=== PATIENT | male | born 1975 | race Caucasian/White ===

== ENCOUNTER 2016-11-03 14:24 | Emergency (ER) | payer BC ==
[2016-11-03 14:40] VITALS: BP 140/88
--- NOTE | 2016-11-03 15:13 | UC ---
Ear Complaint HPI - HPI Summary HPI Summary: 40 yo male with bilat otalgia and decreased hearing ears popping nasal congestion x days no fever - History of Current Complaint Chief Complaint: UCRespiratory Stated Complaint: EARS SINUS COMPLAINT Time Seen by Provider: 11/03/16 14:57 Hx Obtained From: Patient Onset/Duration: Gradual Onset, Lasting Hours Severity Initially: Mild Severity Currently: Mild Pain Intensity: 3 Pain Scale Used: 0-10 Numeric Aggravating Factors: Nothing Alleviating Factors: Nothing Associated Signs/Symptoms: Positive: Hearing Loss, URI Symptoms Related History: Seasonal Allergies - Allergies/Home Medications Allergies/Adverse Reactions: Allergies Allergy/AdvReac Type Severity Reaction Status Date / Time No Known Allergies Allergy Verified 11/03/16 14:40 Home Medications: Home Medications Omeprazole CAP* [Prilosec CAP* 20 MG] 1 tab PO DAILY 11/03/16 [History Confirmed 11/03/16] PMH/Surg Hx/FS Hx/Imm Hx Endocrine History: Diabetes, Dyslipidemia Cardiovascular History: Hypertension GI/ History: Gastroesophageal Reflux Other History Of: Negative For: HIV, Hepatitis B, Hepatitis C, Anticoagulant Therapy - Surgical History Surgical History: Yes Surgery Procedure, Year, and Place: hernia surgery as an infant - Family History Known Family History: Positive: Cardiac Disease, Hypertension, Diabetes - Social History Alcohol Use: Weekly Substance Use Type: None Smoking Status (MU): Never Smoked Tobacco Review of Systems Constitutional: Negative Skin: Negative Eyes: Negative ENT: Ear Ache, Nasal Discharge Respiratory: Negative Cardiovascular: Negative Gastrointestinal: Negative Genitourinary: Negative Motor: Negative Neurovascular: Negative Musculoskeletal: Negative Neurological: Negative Psychological: Negative All Other Systems Reviewed And Are Negative: Yes Physical Exam Triage Information Reviewed: Yes Appearance: Well-Appearing, No Pain Distress, Well-Nourished Vital Signs: Initial Vital Signs Temp 98.9 F 11/03/16 14:33 Pulse 86 11/03/16 14:33 Resp 16 11/03/16 14:33 BP 140/88 11/03/16 14:33 Pulse Ox 99 11/03/16 14:33 Eyes: Positive: Conjunctiva Clear ENT: Positive: Pharyngeal erythema, Nasal congestion, Nasal drainage, TM bulging , TM dull - Right, TM red - Left. Negative: Hearing grossly normal, Tonsillar swelling, Tonsillar exudate, Trismus, Muffled/hoarse voice Neck: Positive: Supple, Nontender Respiratory: Positive: Lungs clear, Normal breath sounds, No respiratory distress, No accessory muscle use Cardiovascular: Positive: RRR, No Murmur Musculoskeletal: Positive: ROM Intact, No Edema Neurological: Positive: Alert Psychological Exam: Normal Skin Exam: Normal Ear Complaint Course/Dx - Differential Dx/Diagnosis Provider Diagnoses: left otitis media. right serous otitis media Discharge - Discharge Plan Condition: Stable Disposition: HOME Prescriptions: Amoxicillin (*) [Amoxicillin 875 MG (*)] 875 mg PO BID #20 tab Fluticasone NASAL SPRAY 50MCG* [Flonase NASAL SPRAY 50MCG*] 2 spray BOTH NARES DAILY #1 btl Patient Education Materials: Otitis Media (ED), Serous Otitis Media (ED) Referrals: Basim Thornton MD [Primary Care Provider] - 2 Weeks (if not better) Additional Instructions: tylenol or ibuprofen if needed
== END 2016-11-03 15:14 | disposition home or self-care (01) ==
LOC: UCCORT 14:24
DX: H66.92 Otitis media, unspecified, left ear (principal); H65.91 Unspecified nonsuppurative otitis media, right ear
CPT/HCPCS: 99212; G0463

== ENCOUNTER 2017-09-14 16:41 | Emergency (ER) | payer BC ==
[2017-09-14 17:46] VITALS: BP 150/94
--- NOTE | 2017-09-14 18:19 | UC ---
Throat Pain/Nasal Aditya HPI - HPI Summary HPI Summary: Patient urgent care tonight with chief complaint 3 weeks of congestion postnasal and chest, complains of cough, patient's biggest concern is worsening right ear pain - History of Current Complaint Chief Complaint: UCRespiratory Stated Complaint: SINUS/EAR COMP Time Seen by Provider: 09/14/17 17:39 Hx Obtained From: Patient Onset/Duration: Gradual Onset, Lasting Weeks - 3, Still Present Severity: Moderate Pain Intensity: 8 Pain Scale Used: 0-10 Numeric Cough: None Associated Signs & Symptoms: Positive: Sinus Discomfort, Nasal Discharge - Allergies/Home Medications Allergies/Adverse Reactions: Allergies Allergy/AdvReac Type Severity Reaction Status Date / Time No Known Allergies Allergy Verified 09/14/17 17:37 Home Medications: Home Medications Ibuprofen TAB* [Advil TAB*] 400 mg PO Q6H PRN 09/14/17 [History Confirmed ] metFORMIN* [Glucophage 500 MG TAB *] 500 mg PO BID 09/14/17 [History Confirmed 09/14/17] PMH/Surg Hx/FS Hx/Imm Hx Previously Healthy: No Endocrine History: Diabetes, Dyslipidemia Cardiovascular History: Hypertension GI/ History: Gastroesophageal Reflux Other History Of: Negative For: HIV, Hepatitis B, Hepatitis C, Anticoagulant Therapy - Surgical History Surgical History: Yes Surgery Procedure, Year, and Place: hernia surgery as an infant - Family History Known Family History: Positive: Cardiac Disease, Hypertension, Diabetes - Social History Occupation: Employed Full-time Lives: With Family Alcohol Use: Occasionally Substance Use Type: None Smoking Status (MU): Never Smoked Tobacco - Immunization History Most Recent Influenza Vaccination: not this season Review of Systems Constitutional: Negative Skin: Negative Eyes: Negative ENT: Sore Throat, Ear Ache, Nasal Discharge, Sinus Congestion Respiratory: Cough Cardiovascular: Negative Gastrointestinal: Negative Genitourinary: Negative Motor: Negative Neurovascular: Negative Musculoskeletal: Negative Neurological: Negative Psychological: Negative Is Patient Immunocompromised?: No All Other Systems Reviewed And Are Negative: Yes Physical Exam Triage Information Reviewed: Yes Appearance: Well-Appearing, No Pain Distress, Well-Nourished Vital Signs: Initial Vital Signs Temp 98.1 F 09/14/17 17:39 Pulse 96 09/14/17 17:39 Resp 18 09/14/17 17:39 BP 150/94 09/14/17 17:39 Pulse Ox 100 09/14/17 17:39 Vital Signs Reviewed: Yes Eye Exam: Normal Eyes: Positive: Conjunctiva Clear ENT Exam: Normal ENT: Positive: Normal ENT inspection, Hearing grossly normal, Pharynx normal, Nasal congestion, Nasal drainage, TMs normal - left, TM bulging - right, TM red - right, Uvula midline. Negative: Trismus, Muffled voice, Hoarse voice, Dental tenderness, Sinus tenderness Dental Exam: Normal Neck exam: Normal Neck: Positive: Supple, Nontender Respiratory Exam: Normal Respiratory: Positive: Chest non-tender, Lungs clear, Normal breath sounds, No respiratory distress, No accessory muscle use Cardiovascular Exam: Normal Cardiovascular: Positive: RRR, No Murmur, Pulses Normal, Brisk Capillary Refill Musculoskeletal Exam: Normal Musculoskeletal: Positive: Strength Intact, ROM Intact, No Edema Neurological Exam: Normal Neurological: Positive: Alert, Muscle Tone Normal Psychological Exam: Normal Skin Exam: Normal Throat Pain/Nasal Course/Dx - Course Assessment/Plan: Amoxicillin and Flonase nasal spray increase fluids over-the- counter medications for symptom relief follow with PCP when necessary - Differential Dx/Diagnosis Provider Diagnoses: Right otitis media, nasal congestion Discharge - Sign-Out/Discharge Documenting (check all that apply): Discharge - Discharge Plan Condition: Stable Disposition: HOME Prescriptions: Amoxicillin PO (*) [Amoxicillin 875 MG (*)] 875 mg PO BID #20 tab Fluticasone NASAL SPRAY 50MCG* [Flonase NASAL SPRAY 50MCG*] 2 spray BOTH NARES DAILY #1 btl Patient Education Materials: Ear Infection (ED), Hypertension (ED), How to Use Nasal [place] (ED) Referrals: Basim Thornton MD [Primary Care Provider] - 2 Weeks - Billing Disposition and Condition Condition: STABLE Disposition: HOME
== END 2017-09-14 18:24 | disposition home or self-care (01) ==
LOC: UCCORT 16:41
DX: H66.91 Otitis media, unspecified, right ear (principal); R09.81 Nasal congestion; E11.9 Type 2 diabetes mellitus without complications; Z79.84 Long term (current) use of oral hypoglycemic drugs; I10 Essential (primary) hypertension
CPT/HCPCS: 99212; G0463

== ENCOUNTER 2019-03-26 09:24 | Emergency (ER) | payer BC ==
--- OUTSIDE RECORDS SUMMARY | 2019-03-26 11:20 | XMS REPORT | Continuity of Care Document ---
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 Problems Active Problems Provider Date Benign essential hypertension Chuck Khan MD Onset: 02/06/2019 Mixed hyperlipidemia Chuck Khan MD Onset: 02/06/2019 Social History Type Date Description Comments Sex Unknown Tobacco Use Start: Unknown Never Smoked Cigarettes Smoking Status Reviewed: 02/06/19 Never Smoked Cigarettes ETOH Use Occasionally consumes alcohol Tobacco Use Start: Unknown Patient denies history of smoking Allergies, Adverse Reactions, Alerts Description No Known Drug Allergies Medications Active Medications SIG Qnty Indications Ordering Date Provider Blood Pressure Kit check bp once a 1units I10 Chuck Khan MD 02/06/2019 Kit day and keep log generic acceptable Proair HFA 2 puffs every Unknown 108(90Base) morning and mcg/Act Aerosol evening Lisinopril 1 tab by mouth 30tabs Chuck Khan MD 20mg Tablets daily Omeprazole 1 tab daily as 30caps Chuck Khan MD 20mg needed Capsules Rosuvastatin Calcium 1 tab by mouth 30tabs Chuck Khan MD daily 20mg Tablets Metformin HCL take one tablet by 60tabs Chuck Khan MD 500mg mouth twice a day Tablets Immunizations Description No Information Available Vital Signs Date Vital Result Comment 02/06/2019 2:13pm BP Systolic 177 mmHg BP Diastolic 108 mmHg Body Temperature 98.6 F Heart Rate 103 /min Respiratory Rate 18 /min Height 69 inches 5'9" Weight 213.00 lb BMI (Body Mass Index) 31.5 kg/m2 BSA (Body Surface Area) 2.12 m2 [place] body weight in kilograms 73 kg O2 % BldC Oximetry 97 % Ra Results Description No Information Available Procedures Description No Information Available Medical Devices Description No Information Available Encounters Description No Information Available Assessments Date Code Description Provider 02/06/2019 Z79.899 Other buttermaker (current) drug therapy Chuck Khan MD 02/06/2019 Z00.01 Encounter for general adult medical examination Chuck Khan MD with abnormal findings 02/06/2019 I10 Essential (primary) hypertension Chuck Khan MD 02/06/2019 E78.5 Hyperlipidemia, unspecified Chuck Khan MD 02/06/2019 E11.65 Type 2 diabetes mellitus with hyperglycemia Chuck Khan MD 02/06/2019 K21.9 Gastro-esophageal reflux disease without Chuck Khan MD esophagitis 02/06/2019 J45.909 Unspecified asthma, uncomplicated Chuck Khan MD Plan of Treatment 02/06/2019 - Chuck Khan MDZ79.899 Other usp (current) drug therapyNew Labs:CBC W/Automated Diff, Ordered: 02/06/19Comprehensive Metabolic Panel, Ordered: 02/06/19Glycohemoglobin A1c, Ordered: 02/06/19LDL Cholesterol Profile, Ordered: 02/06/19TSH Reflex FT4 And/Or FT3, Ordered: 02/06/19Magnesium, Ordered : 02/06/19Magnesium, Ordered: 02/06/19Z00.01 Encounter for general adult medical examination with abnormal [id number] Essential (primary) hypertensionNew Medication:Blood Pressure Kit - check bp once a day and keep log generic zsztmpxdhnM47.5 Hyperlipidemia, pfqduxfvkmkI03.65 Type 2 diabetes mellitus with bftnqjtudntwpR37.9 Gastro-esophageal reflux disease without ybkaznwqxsbP34.909 Unspecified asthma, uncomplicated Functional Status Description No Information Available Mental Status Description No Information Available Referrals Description No Information Available
--- OUTSIDE RECORDS SUMMARY | 2019-03-26 11:20 | XMS REPORT | Continuity of Care Document ---
:1975 External Reference #:[id number] Author Name Chuck Khan MD Address [address] [place] [id number] Care Team Providers Name Role Phone Chuck Khan MD - Family Medicine Care Team Information Supervisor Adult Education Problems Active Problems Provider Date Benign essential hypertension Chuck Khan MD Onset: 02/06/2019 Mixed hyperlipidemia Chuck Khan MD Onset: 02/06/2019 Social History Type Date Description Comments Sex Unknown Tobacco Use Start: Unknown Never Smoked Cigarettes Smoking Status Reviewed: 02/08/19 Never Smoked Cigarettes ETOH Use Occasionally consumes alcohol Tobacco Use Start: Unknown Patient denies history of smoking Allergies, Adverse Reactions, Alerts Description No Known Drug Allergies Medications Active Medications SIG Qnty Indications Ordering Date Provider Metformin HCL take one tablet by 60tabs Chuck Khan MD 02/08/2019 1000mg mouth twice a day Tablets Blood Pressure Kit check bp once a 1units I10 Chuck Khan MD 02/06/2019 day and keep log Kit generic acceptable Proair HFA 2 puffs every 8.500gm Chuck Khan MD morning and 108(90Base) mcg/Act evening Aerosol Lisinopril 1.5 tab by mouth 135tabs Chuck Khan MD 20mg daily Tablets Omeprazole 1 tab daily as 30caps Chuck Khan MD 20mg needed Capsules Rosuvastatin Calcium 1 tab by mouth 30tabs Chuck Khan MD daily 20mg Tablets Immunizations Description No Information Available Vital Signs Date Vital Result Comment 02/08/2019 7:41am BP Systolic Sitting Left Arm 134 mmHg BP Diastolic Sitting Left Arm 92 mmHg Body Temperature 97.6 F Heart Rate 88 /min Respiratory Rate 18 /min Height 69 inches 5'9" Weight 211.00 lb BMI (Body Mass Index) 31.2 kg/m2 BSA (Body Surface Area) 2.11 m2 [place] body weight in kilograms 73 kg 02/06/2019 2:13pm BP Systolic 177 mmHg BP Diastolic 108 mmHg Body Temperature 98.6 F Heart Rate 103 /min Respiratory Rate 18 /min Height 69 inches 5'9" Weight 213.00 lb BMI (Body Mass Index) 31.5 kg/m2 BSA (Body Surface Area) 2.12 m2 [place] body weight in kilograms 73 kg O2 % BldC Oximetry 97 % Ra Results Test Date Facility Test Result H/L Range Note CBC 02/07/2019 [facility] White Blood 6.9 K/uL Normal 3.4-10.5 1 W/Automated [address] [place] [address] [phone] Red Blood Count 5.52 M/uL Normal 4.20-5.80 Hemoglobin 16.6 gm/dL Normal 12.8-17.0 Hematocrit 47.6 % Normal 38.0-48.0 Mean Cell Volume 86.2 fl Normal 80.0-96.0 Mean Corpuscular HGB 30.1 pg Normal 27.0-33.0 Mean Corpuscular HGB Conc 34.9 g/dL Normal 31.7-36.0 Platelet Count 307 K/uL Normal 155-360 Red Cell Distri Width SD 39.1 fl Normal 36-51 Red Cell Distri Width %CV 12.6 % Normal 11.6-15.8 Mean Platelet Volume 10.0 fl Normal 6.6-10.6 Neut% 56.9 % Normal 33.0-73.0 Lymph % 33.9 % Normal 20.0-42.0 [place] % 7.4 % Normal 0.0-10.0 Eo% 1.3 % Normal 0.0-6.6 Bas% 0.4 % Normal 0.0-1.1 Immature Grans 0.1 % Normal 0.0-5.0 NRBC % 0.0 /100WBC < 10/ 100 WBC Neut# 3.92 K/uL Normal 1.8-7.0 Lymph # 2.34 K/uL Normal 1.0-4.0 [place] # 0.51 K/uL Normal 0.0-0.8 Eos # 0.09 K/uL Normal 0.0-0.5 Baso # 0.03 K/uL Normal 0.0-0.1 Immature Grans Absolute 0.01 K/uL NRBC # 0.00 K/uL Comprehensive Metabolic 02/07/2019 [facility] Glucose 192 mg/dL High 74-[address] [place] [address] [phone] BUN 15 mg/dL Normal 7-18 Creatinine 1.1 mg/dL Normal 0.6-1.3 Glom Filtration Rate, Estimate >60 mL/min >60 If >60 mL/min >60 2 BUN/Creat 13.6 ratio Sodium 136 mmol/L Normal 136-145 Potassium 4.0 mmol/L Normal 3.5-5.1 Chloride 104 mmol/L Normal 98-107 Carbon Dioxide 25 mmol/L Normal 21-32 Anion Gap 7 mEq/L Low 8-16 Calcium 9.4 mg/dL Normal 8.5-10.1 Total Protein 8.0 g/dL Normal 6.4-8.2 Albumin 4.4 g/dL Normal 3.4-5.0 Globulin 3.6 g/dL Normal 1.9-4.3 Alb/Glob 1.2 ratio Bilirubin,Total 0.6 mg/dL Normal 0.2-1.0 Sgot/Ast 27 U/L Normal 15-37 SGPT/Alt 57 U/L Normal 12-78 Alkaline Phosphatase 91 U/L Normal 45-117 Reflex add FT3? Y Reflex add FT4? Y Glycohemoglobin 02/07/2019 [facility] Glycohemoglobin 9.1 % High 4.2-6.[address] (A1c) [place] [address] [phone] eAG 214 mg/dL LDL Cholesterol Profile 02/07/2019 [facility] Cholesterol 195 mg/dL <[address] [place] [address] [phone] Triglycerides 139 mg/dL <150 5 HDL Cholesterol 37 mg/dL Low >40 6 LDL-Cholesterol 130 mg/dL < 100 7 Reflex add FT3? Y Reflex add FT4? Y TSH Reflex 02/07/2019 [facility] Thyroid Stim 1.16 uIU/mL Normal 0.30-4.20 FT4 And/Or [address] Hormone FT3 [place] [address] [phone] Reflex add FT3? Y Reflex add FT4? Y Magnesium 02/07/2019 [facility] Magnesium 2.3 mg/dL Normal 1.8-2.4 [address] [place] [id number] [phone] Reflex add FT3? Y Reflex add FT4? Y 1 Z79.899 2 Note: Persistent reduction for 3 months or more in an eGFR <60 mL/min/1.73 m2 defines CKD. Patients with eGFR values >/=60 mL/min/1.73 m2 may also have CKD if evidence of persistent proteinuria is present. The original MDRD equation for estimated GFR is not valid for patients less than 18 years of age. Additional information may be found at www.kdoqi.org. 3 Elevated levels of HbA1c suggest the need for more aggressive treatment of glycemia. The [place] [employer] recommends that a primary goal of therapy should be a HbA1c of <7% and that physicians should re-evaluate the treatment regimen in patients with HbA1c values consistently >8%. 4 Reference Guidelines*: Desirable: ........... < 200 mg/dL Borderline High: ..... 200-239 mg/dL High: ................ >= 240 mg/dL * The National Cholesterol Education Program (NCEP) 5 Reference Guidelines*: Normal: ............. < 150 mg/dL Borderline High: .... 150-199 mg/dL High: ............... 200-499 mg/dL Very High: .......... > 500 mg/dL * Source: National Cholesterol Education Program (NCEP) 6 Reference Guidelines*: Low HDL: ..... < 40 mg/dL Normal: ..... 40-60 mg/dL Desirable: ... > 60 mg/dL *The National Cholesterol Education Program(NCEP) 7 Reference Guidelines*: Optimal:........... <100 mg/dL Near Optimal....... 100-129 mg/dL Borderline High.... 130-159 mg/dL High............... 160-189 mg/dL Very High.......... >=190 mg/dL * Source: National Cholesterol Education Program (NCEP) Procedures Description No Information Available Medical Devices Description No Information Available Encounters Type Date Location Provider Dx Diagnosis Office Visit 02/08/2019 [facility] Chuck Khan MD I10 Essential ( primary) 7:50a [facility] hypertension E78.5 Hyperlipidemia, unspecified E11.65 Type 2 diabetes mellitus with hyperglycemia K21.9 Gastro-esophageal reflux disease without esophagitis J45.909 Unspecified asthma, uncomplicated Assessments Date Code Description Provider 02/08/2019 I10 Essential (primary) hypertension Chuck Khan MD 02/08/2019 E78.5 Hyperlipidemia, unspecified Chuck Khan MD 02/08/2019 E11.65 Type 2 diabetes mellitus with hyperglycemia Chuck Khan MD 02/08/2019 K21.9 Gastro-esophageal reflux disease without Chuck Khan MD esophagitis 02/08/2019 J45.909 Unspecified asthma, uncomplicated Chuck Khna MD 02/06/2019 Z00.01 Encounter for general adult medical examination Chuck Khan MD with abnormal findings 02/06/2019 I10 Essential (primary) hypertension Chuck Khan MD 02/06/2019 E78.5 Hyperlipidemia, unspecified Chuck Khan MD 02/06/2019 E11.65 Type 2 diabetes mellitus with hyperglycemia Chuck Khan MD 02/06/2019 K21.9 Gastro-esophageal reflux disease without Chuck Khan MD esophagitis 02/06/2019 J45.909 Unspecified asthma, uncomplicated Chuck Khan MD 02/06/2019 Z79.899 Other salvage determiner (current) drug therapy Chuck Khan MD Plan of Treatment Future Appointment(s):05/07/2019 7:30 am - Chuck [facility] at [facility]02/08/2019 - Chuck Khan MDI10 Essential (primary) kuvxbhoxmjblZ54.5 Hyperlipidemia, wakefyhioloX70.65 Type 2 diabetes mellitus with twjxrupornnurE62.9 Gastro-esophageal reflux disease without cgbokdhdhulI34.909 Unspecified asthma, uncomplicated Functional Status Description No Information Available Mental Status Description No Information Available Referrals Description No Information Available
--- NOTE | 2019-03-26 12:03 | UC ---
Eye Complaint HPI - HPI Summary HPI Summary: 43 y/o male presents to the urgent care c/o Right eye redness since yesterday. He felt sensation of FB and rinsed his eye. This morning he woke up w/ yellowish drainage and his RT eye red. His son was Dx w/ B/L pink eye 2 days ago and he thinks now he has it. Pt denies fever, visual changes, BAKER, dizziness , chest pain, abdominal pain, SOB, palpitations, N/V/D. Pt states he took his BP medication this morning and took his BP and it was WNL. However sometimes he feels it gets higher when he goes to the doctor. He denies any symptoms other than RT eye redness - History of Current Complaint Chief Complaint: UCEye Stated Complaint: RT EYE CONCERN Time Seen by Provider: 03/26/19 12:01 Hx Obtained From: Patient Onset/Duration: Gradual Onset, Lasting Days - 1 day or Rt eye redness, Still Present, Worse Since - this morning w/ yellowish crusting drainage from RT eye Timing: Constant Severity Initially: Mild Severity Currently: Mild Pain Intensity: 0 Pain Scale Used: 0-10 Numeric Location of Injury: Conjunctiva - RT red Character: Foreign Body Sensation Aggravating Factor(s): Blinking Alleviating Factor(s): Nothing Associated Signs And Symptoms: Positive: Drainage (Purulent) - RT eye w/ redness. Negative: Vision Impairment Bilateral, Fever, Swelling Related History: Other - son w/ conjunctivitis for the past 2 days - Risk Factors Penetrating Injury Risk Factor: Negative Acute Glaucoma Risk Factors: Negative Optic Artery Occlusion Risk Factors: Negative - Allergies/Home Medications Allergies/Adverse Reactions: Allergies Allergy/AdvReac Type Severity Reaction Status Date / Time No Known Allergies Allergy Verified 09/14/17 17:37 Home Medications: Home Medications Lisinopril 20 mg PO QAM 03/26/19 [History Confirmed 03/26/19] PMH/Surg Hx/FS Hx/Imm Hx Previously Healthy: Yes Endocrine History: Diabetes, Dyslipidemia Cardiovascular History: Hypertension GI/ History: Gastroesophageal Reflux Other History Of: Negative For: HIV, Hepatitis B, Hepatitis C, Anticoagulant Therapy - Surgical History Surgical History: Yes Surgery Procedure, Year, and Place: hernia surgery as an - Family History Known Family History: Positive: Cardiac Disease, Hypertension, Diabetes - Social History Occupation: Employed Full-time Lives: With Family Alcohol Use: Occasionally Substance Use Type: None Smoking Status (MU): Never Smoked Tobacco - Immunization History Most Recent Influenza Vaccination: not this season Review of Systems All Other Systems Reviewed And Are Negative: Yes Constitutional: Positive: Negative Skin: Positive: Negative Eyes: Positive: Drainage - RT eye yellowish drainage, Eye Redness - RT eye. Negative: Blurred Vision, Diplopia, Photophobia ENT: Positive: Negative Respiratory: Positive: Negative Cardiovascular: Positive: Negative Gastrointestinal: Positive: Negative Genitourinary: Positive: Negative Motor: Positive: Negative Neurovascular: Positive: Negative Musculoskeletal: Positive: Negative Neurological: Positive: Negative Psychological: Positive: Negative Is Patient Immunocompromised?: No Physical Exam - Summary Physical Exam Summary: Vital Signs Reviewed: Yes General: Well appearing, well nourished adolescent male in no apparent pain distress Eyes: Positive: RT eye Conjunctiva Inflamed, LF WNL - Visual acuity: WNL,Visual hurd: full to confrontation. PERRLA, EOMI intact w/out limitation or complaint of pain. eyelashes clear. mild tearing and yellowish drainage observed. No ciliary flush. No chemosis, No photophobia. Normal fundoscopic exam; no proptosis, exophthalmos, nystagmus. ENT: Positive: Normal ENT inspection, Hearing grossly normal, Pharynx normal, Nasal congestion, Nasal drainage - clear, TMs normal - B/L external ear canal clear , TM's WNL. Negative: Tonsillar swelling, Tonsillar exudate Neck: Positive: Supple, Nontender, No Lymphadenopathy Respiratory: Positive: Chest nontender, Lungs clear, Normal breath sounds, No respiratory distress Cardiovascular: Positive: RRR, No Murmur, Pulses Normal, Brisk Capillary Refill Abdomen Description: Positive: Nontender, No Organomegaly, Soft. Negative: CVA Tenderness (R), CVA Tenderness (L) Bowel Sounds: Positive: Present Musculoskeletal: Positive: Strength Intact, ROM Intact, No Edema Neurological Exam: Normal Psychological Exam: Normal Skin Exam: Normal Triage Information Reviewed: Yes Vital Signs: Initial Vital Signs Temp 98.3 F 03/26/19 11:44 Pulse 96 03/26/19 11:44 Resp 20 03/26/19 11:44 BP 147/106 03/26/19 11:44 Pulse Ox 100 03/26/19 11:44 Eye Complaint Course/Dx - Course Course Of Treatment: 43 y/o male presents to the urgent care c/o Right eye redness since yesterday. He felt sensation of FB and rinsed his eye. This morning he woke up w/ yellowish drainage and his RT eye red. His son was Dx w/ B/L pink eye 2 days ago and he thinks now he has it. Pt denies fever, visual changes, BAKER, dizziness , chest pain, abdominal pain, SOB, palpitations, N/V/D. Pt states he took his BP medication this morning and took his BP and it was WNL. However sometimes he feels it gets higher when he goes to the doctor. He denies any symptoms other than RT eye redness. Hx obtained. Pt is hemodynamically stable, A&OX3. PE abnormal findings: B/L PERRLA, EOMI, fundi grossly normal, no tender to palpation. RT conjunctiva moderately injected, mild yellowish discharge, LF conjunctiva clear. Most likely Bacterial conjunctivitis. Pt Rx Ciprofloxacin ophthalmic drops and advised if symptoms do not improve or worsen to f/u with Rn Cvor Dr Day in 3 days. Pt's BP is very elevated today but Pt is asymptomatic. Strongly if he develoeps any symptpoms SOB, visual changes, chest pain, dizziness severe BAKER to go immediately to the ER for further management. Otherwise, decrease salt in diet, monitor BP and f/u with PCP in 3 days for further management. D/C instructions explained. Pt understood and agreed. - Differential Dx/Diagnosis Differential Diagnosis/HQI/PQRI: Conjunctivitis, Keratitis, Periorbital Cellulitis, Orbital Cellulitis, Uveitis, Other - [facility] Provider Diagnosis: Bacterial conjunctivitis of right eye, Uncontrolled hypertension Discharge ED - Sign-Out/Discharge Documenting (check all that apply): Patient Departure - D/C home All imaging exams completed and their final reports reviewed: No Studies - Discharge Plan Condition: Stable Disposition: HOME Prescriptions: Ciprofloxacin 0.3% OPTH.ADRIENNE* [Cipro 0.3% Opth*] 1 drop RIGHT EYE Q2H #1 btl Patient Education Materials: Conjunctivitis (ED) Referrals: Chuck Khan MD [Primary Care Provider] - 3 Days Pippa Day MD [Medical Doctor] - If Needed Additional Instructions: 1-Please apply ophthalmic drops as instructed and finish the full course of treatment to avoid recurrent infection. Encourage hand washing to avoid spreading. 2-If you do not improve or if symptoms worsen please f/u with wood milling machine tender DR Day for further evaluation and treatment 3-Your BP is elevated today. Please take your BP medications and decrease salt in your diet, monitor BP and if it continues to be elevated please f/u with your PCP for further management. If you develop chest pain, dizziness, visual disturbances, SOB, or severe BAKER please go immediately to the ER for further management - Billing Disposition and Condition Condition: STABLE Disposition: Home
[2019-03-26 12:41] VITALS: BP 155/112
== END 2019-03-26 12:41 | disposition home or self-care (01) ==
LOC: UCCORT 09:24
DX: H10.9 Unspecified conjunctivitis (principal); B96.89 Other specified bacterial agents as the cause of diseases classified elsewhere; I10 Essential (primary) hypertension; E11.9 Type 2 diabetes mellitus without complications; Z79.899 Other long term (current) drug therapy
CPT/HCPCS: 99212; G0463

== ENCOUNTER 2019-07-14 09:14 | Emergency (ER) | payer BC ==
--- OUTSIDE RECORDS SUMMARY | 2019-07-14 09:39 | XMS REPORT | Continuity of Care Document ---
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 [phone] Problems Active Problems Provider Date Benign essential hypertension Chuck Khan MD Onset: 02/06/2019 Mixed hyperlipidemia Chuck Khan MD Onset: 02/06/2019 Social History Type Date Description Comments Sex Unknown Tobacco Use Start: Unknown Never Smoked Cigarettes Smoking Status Reviewed: 06/13/19 Never Smoked Cigarettes ETOH Use Occasionally consumes alcohol Tobacco Use Start: Unknown Patient denies history of smoking Allergies, Adverse Reactions, Alerts Active Allergies Reaction Severity Comments Date NKDA 02/06/2019 Milk Sensitivity 06/13/2019 Medications Active Medications SIG Qnty Indications Ordering Date Provider Glipizide ER take 1 tablet by 90tabs Chuck Khan MD 05/14/2019 2.5mg mouth every day Tablets ER 24HR Metformin HCL Take 1 Tablet By 60tabs Chuck Khan MD 02/08/2019 1000mg Mouth Twice A Day Tablets Blood Pressure Kit check bp once a 1units I10 Chuck Khan MD 02/06/2019 day and keep log Kit generic acceptable Proair HFA 2 puffs every 8.500gm Chuck Khan MD morning and 108(90Base) mcg/Act evening Aerosol Lisinopril 1.5 tab by mouth 135tabs Chuck Khan MD 20mg daily Tablets Omeprazole Take 1 Capsule By 30caps Chuck Khan MD 20mg Mouth Once Daily Capsules DR If Needed Rosuvastatin Calcium Take 1 Tablet By 30taChuck Melchor MD Mouth Once Daily 20mg Tablets Immunizations Description No Information Available Vital Signs Date Vital Result Comment 06/13/2019 7:33am BP Systolic 162 mmHg BP Diastolic 102 mmHg Body Temperature 98.6 F Heart Rate 102 /min Respiratory Rate 18 /min Height 69 inches 5'9" Weight 218.12 lb BMI (Body Mass Index) 32.2 kg/m2 BSA (Body Surface Area) 2.14 m2 [place] body weight in kilograms 73 kg O2 % BldC Oximetry 97 % 05/14/2019 7:47am BP Systolic Sitting Left Arm 154 mmHg BP Diastolic Sitting Left Arm 88 mmHg Body Temperature 99.0 F Heart Rate 100 /min Respiratory Rate 18 /min Height 69 inches 5'9" Weight 217.00 lb BMI (Body Mass Index) 32.0 kg/m2 BSA (Body Surface Area) 2.14 m2 [place] body weight in kilograms 73 kg O2 % BldC Oximetry 98 % Results Test Acquired Facility Test Result H/L Range Note Date Glycohemoglobin A1c 05/14/[address] [facility] [address] Glycohemoglobin 7.8 % High 4.2-6.3 1, 2 [address] [facility] (A1c) [place], [place] [id number] [phone] eAG 177 mg/dL CBC W/Automated 02/07/2019 [facility] White Blood 6.9 K/uL Normal 3.4-10.[address] [place] [address] [phone] Red Blood Count 5.52 M/uL Normal 4.20-5.80 [...] 33.0-73.0 Lymph % 33.9 % Normal 20.0-42.0 Hand % 7.4 % Normal 0.0-10.0 Eo% 1.3 % Normal 0.0-6.6 Bas% 0.4 % Normal 0.0-1.1 Immature Grans 0.1 % Normal 0.0-5.0 NRBC % 0.0 /100WBC < 10/ 100 WBC Neut# 3.92 K/uL Normal 1.8-7.0 Lymph # 2.34 K/uL Normal 1.0-4.0 Hand # 0.51 K/uL Normal 0.0-0.8 Eos # 0.09 K/uL Normal 0.0-0.5 Baso # 0.03 K/uL Normal 0.0-0.1 Immature Grans Absolute 0.01 K/uL NRBC # 0.00 K/uL Comprehensive Metabolic 02/07/2019 [facility] Glucose 192 mg/dL High 74-[address] [place] [address] [phone] BUN 15 mg/dL Normal 7-18 Creatinine 1.1 mg/dL Normal 0.6-1.3 Glom Filtration Rate, Estimate >60 mL/min >60 If >60 mL/min >60 3 BUN/Creat 13.6 ratio Sodium 136 mmol/L Normal [...] Y Reflex add FT4? Y Glycohemoglobin 02/07/2019 [facility] Glycohemoglobin 9.1 % High 4.2-6.[address] (A1c) [place] [address] [phone] eAG 214 mg/dL LDL Cholesterol Profile 02/07/2019 [facility] Cholesterol 195 mg/dL <200 5 [address] [place] [address] [phone] Triglycerides 139 mg/dL <150 6 HDL Cholesterol 37 mg/dL Low >40 7 LDL-Cholesterol 130 mg/dL < 100 8 Reflex add FT3? Y Reflex add FT4? Y TSH Reflex 02/07/2019 [facility] Thyroid Stim 1.16 uIU/mL Normal 0.30-4.20 FT4 And/Or [address] Hormone FT3 [place], [place] [id number] [phone] Reflex add FT3? Y Reflex add FT4? Y Magnesium 02/07/2019 [facility] Magnesium 2.3 mg/dL Normal 1.8-2.4 [address] [place] [address] [phone] Reflex add FT3? Y Reflex add FT4? Y 1 Z79.899 2 Elevated levels of HbA1c suggest the need for more aggressive treatment of glycemia. The [place] [employer] recommends that a primary goal of therapy should be a HbA1c of <7% and that physicians should re-evaluate the treatment regimen in patients with HbA1c values consistently >8%. 3 Note: Persistent reduction for 3 months or more in an eGFR <60 mL/min/1.73 m2 defines CKD. Patients with eGFR values >/=60 mL/min/1.73 m2 may also have CKD if evidence of persistent proteinuria is present. The original MDRD equation for estimated GFR is not valid for patients less than 18 years of age. Additional information may be found at www.kdoqi.org. 4 Elevated levels of HbA1c suggest the need for more aggressive treatment of glycemia. The [place] [employer] recommends that a primary goal of therapy should be a HbA1c of <7% and that physicians should re-evaluate the treatment regimen in patients with HbA1c values consistently >8%. 5 Reference Guidelines*: Desirable: ........... < 200 mg/dL Borderline High: ..... 200-239 mg/dL High: ................ >= 240 mg/dL * The National Cholesterol Education Program (NCEP) 6 Reference Guidelines*: Normal: ............. < 150 mg/dL Borderline High: .... 150-199 mg/dL High: ............... 200-499 mg/dL Very High: .......... > 500 mg/dL * Source: National Cholesterol Education Program (NCEP) 7 Reference Guidelines*: Low HDL: ..... < 40 mg/dL Normal: ..... 40-60 mg/dL Desirable: ... > 60 mg/dL *The National Cholesterol Education Program(NCEP) 8 Reference Guidelines*: Optimal:........... <100 mg/dL Near Optimal....... 100-129 mg/dL Borderline High.... 130-159 mg/dL High............... 160-189 mg/dL Very High.......... 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 Office Visit 04/05/2019 2:00p Family Medicine Jackelyn Vásquez, H10.[address] 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 Office Visit 02/08/2019 7:50a Family Medicine Chuck Khan, I[facility] Essential (primary) Orestes HANSEN MD hypertension E78.5 Hyperlipidemia, unspecified E11.65 Type 2 diabetes mellitus with hyperglycemia K21.9 Gastro-esophageal reflux disease without esophagitis J45.909 Unspecified asthma, uncomplicated Assessments Date Code Description Provider 06/13/2019 [facility] (primary) hypertension Chuck Khan MD 06/13/2019 E11.65 Type 2 diabetes mellitus with hyperglycemia Chuck Khan MD 05/14/2019 [facility] (primary) hypertension Chuck Khan MD 05/14/2019 E78.5 Hyperlipidemia, unspecified Chuck Khan MD 05/14/2019 E11.65 Type 2 diabetes mellitus with hyperglycemia Chuck Khan MD 05/14/2019 Z79.899 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 Chuck Khan MD 04/05/2019 H10.9 Unspecified conjunctivitis Jackelyn Vásquez FNP 02/08/2019 [facility] (primary) hypertension Chuck Khan MD 02/08/2019 E78.5 Hyperlipidemia, unspecified Chuck Khan MD 02/08/2019 E11.65 Type 2 diabetes mellitus with hyperglycemia Chuck Khan MD 02/08/2019 K21.9 Gastro-esophageal reflux disease without Chuck Khan MD esophagitis 02/08/2019 J45.909 Unspecified asthma, uncomplicated Chuck Khan MD 02/06/2019 Z00.01 Encounter for [...] uncomplicated Chuck Khan MD 02/06/2019 Z79.899 Other long-term (current) drug therapy Chuck Khan MD Plan of Treatment No Information Available Functional Status Description No Information Available Mental Status Description No Information Available Referrals Description No Information Available
--- OUTSIDE RECORDS SUMMARY | 2019-07-14 09:39 | XMS REPORT | Continuity of Care Document ---
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 [phone] Problems Active Problems Provider Date Benign essential hypertension Chuck Khan MD Onset: 02/06/2019 Mixed hyperlipidemia Chuck Khan MD Onset: 02/06/2019 Social History Type Date Description Comments Sex Unknown Tobacco Use Start: Unknown Never Smoked Cigarettes Smoking Status Reviewed: 05/14/19 Never Smoked Cigarettes ETOH Use Occasionally consumes [...] check bp once a 1units I10 Chuck Khna MD 02/06/2019 day and keep log Kit [...] Available Vital Signs Date Vital Result Comment 05/14/2019 7:47am BP Systolic Sitting Left Arm 154 mmHg BP Diastolic Sitting Left Arm 88 mmHg Body Temperature 99.0 F Heart Rate 100 /min Respiratory Rate 18 /min Height 69 inches 5'9" Weight 217.00 lb BMI (Body Mass Index) 32.0 kg/m2 BSA (Body Surface Area) 2.14 m2 [place] body weight in kilograms 73 kg O2 % BldC Oximetry 98 % 04/05/2019 1:47pm BP Systolic 130 mmHg BP Diastolic 90 mmHg Body Temperature 97.9 F Heart Rate 85 /min Respiratory Rate 18 /min Height 69 inches 5'9" Weight 215.50 lb BMI (Body Mass Index) 31.8 kg/m2 BSA (Body Surface Area) 2.13 m2 [place] body weight in kilograms 73 kg O2 % BldC Oximetry 98 % Results Test Acquired Facility Test Result H/L Range Note Date Glycohemoglobin A1c 05/14/[address] [facility] [address] Glycohemoglobin 7.8 % High 4.2-6.3 1, 2 [address] [facility] (A1c) [place] [address] [phone] [phone] 177 mg/dL CBC W/Automated 02/07/2019 [facility] White Blood 6.9 K/uL Normal 3.4-10.[address] [place] [address] [phone] Red Blood Count 5.52 M/uL Normal 4.20-5.80 [...] 33.0-73.0 Lymph % 33.9 % Normal 20.0-42.0 [place] % 7.4 % Normal 0.0-10.0 Eo% 1.3 % Normal 0.0-6.6 Bas% 0.4 % Normal 0.0-1.1 Immature Grans 0.1 % Normal 0.0-5.0 NRBC % 0.0 /100WBC < 10/ 100 WBC Neut# 3.92 K/uL Normal 1.8-7.0 Lymph # 2.34 K/uL Normal 1.0-4.0 [place] # 0.51 K/uL Normal 0.0-0.8 Eos # 0.09 K/uL Normal 0.0-0.5 Baso # 0.03 K/uL Normal 0.0-0.1 Immature Grans Absolute 0.01 K/uL NRBC # 0.00 K/uL Comprehensive Metabolic 02/07/2019 [facility] Glucose 192 mg/dL High 74-[address] [place] [address] [phone] BUN 15 mg/dL Normal 7-18 Creatinine 1.1 [...] Y Reflex add FT4? Y Glycohemoglobin 02/07/2019 [facility] Glycohemoglobin 9.1 % High 4.2-6.[address] (A1c) [place] [address] [phone] eAG 214 mg/dL LDL Cholesterol Profile 02/07/2019 [facility] Cholesterol 195 mg/dL <200 5 [address] [place] [address] [phone] Triglycerides 139 mg/dL <150 6 HDL Cholesterol 37 mg/dL Low >40 7 LDL-Cholesterol 130 mg/dL < 100 8 Reflex add FT3? Y Reflex add FT4? Y TSH Reflex 02/07/2019 [facility] Thyroid Stim 1.16 uIU/mL Normal 0.30-4.20 FT4 And/Or [address] Hormone FT3 [place] [address] [phone] Reflex add FT3? Y Reflex add FT4? Y Magnesium 02/07/2019 [facility] Magnesium 2.3 mg/dL Normal 1.8-2.4 [address] [place] [address] [phone] Reflex add FT3? Y Reflex add FT4? Y 1 Z79.899 2 Elevated levels of HbA1c suggest the need for more aggressive treatment of glycemia. The [place] [employer] recommends that a primary goal [...] for more aggressive treatment of glycemia. 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 Office Visit 02/08/2019 7:50a Family Medicine Chuck Khan, I10 Essential (primary) Orestes HANSEN MD hypertension E78.5 Hyperlipidemia, unspecified E11.65 Type 2 diabetes mellitus with hyperglycemia K21.9 Gastro-esophageal reflux disease without esophagitis J45.909 Unspecified asthma, uncomplicated Assessments Date Code Description Provider 05/14/2019 [facility] (primary) hypertension Chuck Khan MD 05/14/2019 E78.5 Hyperlipidemia, unspecified Chuck Khan MD 05/14/2019 E11.65 Type 2 diabetes mellitus with hyperglycemia Chuck Khan MD 05/14/2019 Z79.899 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 Chuck Khan MD 04/05/2019 [...] uncomplicated Chuck Khan MD 02/06/2019 Z79.899 Other penitentiary (current) drug therapy Chuck Khan MD Plan of Treatment Future Appointment(s):06/13/2019 7:30 am - Chcuk Khan MD at [facility] RD05/14/2019 - Chuck Khan MDI10 Essential (primary) [id number] Hyperlipidemia, lzlcenkzafnM85.65 Type 2 diabetes mellitus with irsygamphgnheJ49.899 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 Functional Status Description No Information Available Mental Status Description No Information Available Referrals Description No Information Available
[2019-07-14 09:49] VITALS: BP 155/95
[2019-07-14 10:31] LABS: Influenza A Molecular Negative (Negative); Influenza B Molecular Negative (Negative)
--- NOTE | 2019-07-14 10:34 | UC ---
FLU HPI - HPI Summary HPI Summary: Pt presents with c/o body aches, fever chills and known exposure to flu at home , tested positive for type A yesterday. - History of Current Complaint Chief Complaint: UCRespiratory Stated Complaint: COUGH,CONGESTION Time Seen by Provider: 07/14/19 09:46 Hx Obtained From: Patient Onset/Duration: Sudden Onset, Lasting Days, Still Present Severity Currently: Mild Severity Initially: Mild Pain Intensity: 0 Associated Signs & Symptoms: Positive: Fever, Myalgia, Cough, Nasal Congestion Related Hx: Possible Flu/Infectious Exposure - Risk Factors Influenza Risk Factors: Negative - Allergy/Home Medications Allergies/Adverse Reactions: Allergies Allergy/AdvReac Type Severity Reaction Status Date / Time No Known Allergies Allergy Verified 07/14/19 09:43 Home Medications: Home Medications "Blue" Pill To Decrease Hgba1c 1 tab PO DAILY 07/14/19 [History] Ibuprofen TAB* [Advil TAB*] 400 mg PO Q6H PRN 07/14/19 [History Confirmed ] Lisinopril TAB* [Prinivil TAB*] 20 mg PO DAILY 07/14/19 [History Confirmed 07/14] PMH/Surg Hx/FS Hx/Imm Hx Previously Healthy: Yes Other History Of: Negative For: HIV, Hepatitis B, Hepatitis C, Anticoagulant Therapy - Surgical History Surgical History: Yes Surgery Procedure, Year, and Place: hernia surgery as an - Family History Known Family History: Positive: Cardiac Disease, Hypertension, Diabetes - Social History Occupation: Employed Full-time Lives: With Family Alcohol Use: Occasionally Substance Use Type: None Smoking Status (MU): Never Smoked Tobacco Have You Smoked in the Last Year: No - Immunization History Most Recent Influenza Vaccination: not this season Vaccination Up to Date: Yes Review of Systems All Other Systems Reviewed And Are Negative: Yes Constitutional: Positive: Fever, Chills, Fatigue Skin: Positive: Negative Eyes: Positive: Negative ENT: Positive: Nasal Discharge Respiratory: Positive: Cough Cardiovascular: Positive: Negative Gastrointestinal: Positive: Negative Genitourinary: Positive: Negative Motor: Positive: Negative Neurovascular: Positive: Negative Musculoskeletal: Positive: Myalgia Neurological/Mental Status: Positive: Negative Psychological: Positive: Negative Is Patient Immunocompromised?: No Physical Exam Triage Information Reviewed: Yes Appearance: Ill-Appearing Vital Signs: Initial Vital Signs Temp 99.6 F 07/14/19 09:42 Pulse 124 07/14/19 09:42 Resp 18 07/14/19 09:42 BP 155/95 07/14/19 09:42 Pulse Ox 98 07/14/19 09:42 Vital Signs Reviewed: Yes Eye Exam: Normal ENT Exam: Normal Dental Exam: Normal Neck exam: Normal Respiratory Exam: Normal Cardiovascular Exam: Normal Musculoskeletal Exam: Normal Neurological Exam: Normal Psychological Exam: Normal Skin Exam: Normal Flu Course/Dx - Differential Dx/Diagnosis Differential Diagnosis/HQI/PQRI: Influenza, Upper Respiratory Infection Provider Diagnosis: Viral syndrome Discharge ED - Sign-Out/Discharge Documenting (check all that apply): Patient Departure All imaging exams completed and their final reports reviewed: No Studies - Discharge Plan Condition: Stable Disposition: HOME Patient Education Materials: Viral Syndrome (ED) Referrals: Chuck Khan MD [Primary Care Provider] - If Needed - Billing Disposition and Condition Condition: STABLE Disposition: Home
== END 2019-07-14 10:47 | disposition home or self-care (01) ==
LOC: UCCORT 09:14
DX: B34.9 Viral infection, unspecified (principal); R05 Cough; R68.83 Chills (without fever); R53.83 Other fatigue; R09.89 Other specified symptoms and signs involving the circulatory and respiratory systems; M79.10 Myalgia, unspecified site
CPT/HCPCS: 99211; G0463